=== PATIENT | male | born 1960 | race Caucasian/White ===

== ENCOUNTER 2017-03-01 13:54 | Emergency (ER) | payer OTHER ==
[~2017-03-01] VITALS: Ht 175.3 cm; Wt 68.0 kg
--- NOTE | 2017-03-01 14:50 | NUR ---
Dr. Osullivan at bedside for MSE.
[2017-03-01] MEDS ORDERED: DIAZEPAM 2 MG TABLET PO ONE (15:15)
[2017-03-01] MEDS ORDERED: OXYCODONE/APAP 5-325 MG TABLET PO ONE (15:15)
[2017-03-01] MEDS ORDERED: OXYCODONE/APAP 5-325 MG TABLET ONE (15:26)
[2017-03-01] MEDS ORDERED: DIAZEPAM 5 MG TABLET ONE (15:28)
[2017-03-01 15:32] VITALS: BP 120/80
== END 2017-03-01 15:33 | disposition home or self-care (01) ==
LOC: ER 13:54
DX: M54.5 Low back pain (principal)
CPT/HCPCS: A4663